=== PATIENT | female | born 1975 | race Caucasian/White ===

== ENCOUNTER 2018-11-23 15:15 | Emergency (ER) | payer SELFPAY ==
[~2018-11-23] VITALS: Ht 153.7 cm; Wt 80.3 kg
[2018-11-23 15:28] VITALS: BP 167/90
--- NOTE | 2018-11-23 15:37 | NUR ---
PT AMBULATED TO THE BATHROOM WITH STEADY GAIT. URINE CUP GIVEN
--- NOTE | 2018-11-23 15:38 | NUR ---
BIB DAUGHTER. C/O RUQ PAIN RADIATING TO RIGHT UPPER BACK X 8 DAYS. PT DENIES FEVER, N/V/D, TRAUMA/INJURY, DYSURIA. PT TX IBUPROFEN AND FLANAX (SURINAMESE OTC MED) WITH MILD RELIEF. PMH:HTN MED RX: HYDROCHLOROTIAZIDE 25 MG ALLERGY: DENIES
--- NOTE | 2018-11-23 15:39 | NUR ---
PT AMBULATED WITH STEADY GAIT TO BED 12. URINE SPECIMEN OBTAINED
[2018-11-23] MEDS ORDERED: KETOROLAC 30 MG/ML VIAL IVP ONE (16:55)
[2018-11-23 17:17] LABS: BASOPHILS # (AUTO) 0.1 K/uL (0.00-0.22); BASOPHILS % (AUTO) 0.9 % (0.0-2.0); EOSINOPHILS # (AUTO) 0.2 K/uL (0-0.4); EOSINOPHILS % (AUTO) 2.2 % (0.0-4.0); HEMATOCRIT 33.5 % (36-48); LYMPHOCYTES # (AUTO) 3.1 K/uL (2.5-16.5); LYMPHOCYTES % (AUTO) 26.8 % (20.5-51.1); MEAN CORPUSCULAR HEMOGLOBIN 27 pg (27-31); MEAN CORPUSCULAR HGB CONC 33 g/dL (33-37); MEAN CORPUSCULAR VOLUME 82.9 fL (80-94); MONOCYTES # (AUTO) 0.7 K/uL (0.8-1.0); MONOCYTES % (AUTO) 6.2 % (1.7-9.3); NEUTROPHILS # (AUTO) 7.3 K/uL (1.8-7.7); NEUTROPHILS % (AUTO) 63.9 % (42.2-75.2); PLATELET COUNT (AUTO) 453 K/uL (140-450); RED BLOOD CELL COUNT(AUTO) 4.04 MIL/uL (4.20-5.40); RED CELL DISTRIBUTION WIDTH 13.6 % (11.6-13.7); WHITE BLOOD COUNT (AUTO) 11.4 K/uL (4.8-10.8)
[2018-11-23 17:25] LABS: APPEARANCE,URINE CLEAR (CLEAR); BILIRUBIN,URINE NEGATIVE (NEGATIVE); BLOOD, URINE TRACE-I (NEGATIVE); COLOR,URINE YELLOW (YELLOW); LEUKOCYTE ESTERASE ,URINE NEGATIVE (NEGATIVE); NITRITE, URINE NEGATIVE (NEGATIVE); UGLUCOSE NEGATIVE (NEGATIVE)
[2018-11-23 17:26] LABS: RBC,URINE 0-5 /HPF (0-5); WBC,URINE NONE SEEN /HPF (0-5)
[2018-11-23 17:36] LABS: ANION GAP 11.7 (8-16); CARBON DIOXIDE 28.4 mmol/L (21-32); CREATININE 0.6 mg/dL (0.6-1.3); POTASSIUM 4.1 mmol/L (3.5-5.1); TOTAL BILIRUBIN 0.3 mg/dL (0.0-1.0)
--- NOTE | 2018-11-23 18:38 | NUR ---
PER PT RUQ PAIN SUBSIDED TO 4/10, DENIES NAUSEA, WAITING FOR US RESULTS, WILL CONTINUE TO MONITOR
[2018-11-23 19:12] VITALS: BP 163/75
--- NOTE | 2018-11-23 19:12 | NUR ---
Patient discharged by Dr Contreras with v/s stable. Written and verbal after care instructions given and explained. Patient alert, oriented and verbalized understanding of instructions. Ambulatory with steady gait. All questions addressed prior to discharge. ID band removed. Patient advised to follow up with PMD. Rx of Pepcid given. Patient educated on indication of medication including possible reaction and side effects. Opportunity to ask questions provided and answered.
== END 2018-11-23 19:12 | disposition home or self-care (01) ==
LOC: MED 15:15
DX: K80.80 Other cholelithiasis without obstruction (principal); I10 Essential (primary) hypertension
CPT/HCPCS: 36415; 76705; 80053; 81001; 81025; 82150; 83690; 85025; 96374; 99284; J1885; Q0092